=== PATIENT | female | born 1985 | race Caucasian/White ===

== ENCOUNTER 2023-05-10 09:52 | Emergency (ER) | payer SELFPAY ==
[2023-05-10 10:24] LABS: Absolute Lymphocytes (CBC) 1.3 K/uL (0.7-4.9); Hematocrit 38.3 % (36.0-45.0); Lymphocytes % 23.1 % (15.3-44.8); MCV 89.6 fL (80-100); MPV 7.8 fL (7.6-11.3); Platelets 193 thou/uL (152-406); RBC Red Blood Cell Count 4.28 M/uL (3.86-4.86)
[2023-05-10 10:41] LABS: Potassium 3.7 mEq/L (3.5-5.1)
[2023-05-10 10:55] LABS: Specific Gravity 1.011 (1.005-1.030); Urine Bacteria None Seen /HPF (<20); Urine Bilirubin NEGATIVE (Negative); Urine Blood 3+ (Negative); Urine Clarity Clear (Clear); Urine Color Colorless (Yellow); Urine Glucose NEGATIVE (Negative); Urine Mucus Slight /HPF (None Seen); Urine Protein NEGATIVE (Negative); Urine Urobilinogen Normal (Normal); Urine pH 7.5 (5.0-7.0)
[2023-05-10 10:57] LABS: Specific Gravity 1.011 (1.005-1.030)
--- NOTE | 2023-05-10 11:03 | RAD REPORT ---
EXAM DESCRIPTION: US - Transvaginal Study Probe - 05/10/2023 10:42 am CLINICAL HISTORY: Pelvic pain COMPARISON: none FINDINGS: The uterus measures 9 x 5 x 6 cm. A fibroid is not seen. The endometrial stripe measures 1 centimeter The ovaries are normal in size and echotexture. The right and left adnexa unremarkable No significant free fluid is seen. IMPRESSION: No significant abnormality is displayed
--- NOTE | 2023-05-10 11:15 | ER ---
Nurse's Notes [facility] [place] Name: Felisha Vasquez Age: 38 yrs Sex: Female : 1985 Arrival Date: 05/10/2023 Time: 09:52 Bed 18 Private MD: Diagnosis: Abnormal uterine and vaginal bleeding, unspecified Presentation: 05/10 10:07 Chief complaint: Patient states: Vaginal bleeding with large clots for 3 days. Lower ll1 back and lower abdominal pain. Coronavirus screen: Vaccine status: Patient reports being unvaccinated. Client denies travel out of the [place] in the last 14 days. At this time, the client does not indicate any symptoms associated with coronavirus-19. Ebola Screen: Patient denies travel to an Ebola-affected area in the 21 days before illness onset. Initial Sepsis Screen: Does the patient meet any 2 criteria? No. Patient's initial sepsis screen is negative. Does the patient have a suspected source of infection? Yes: Other: vaginal bleeding with clots. Risk Assessment: Do you want to hurt yourself or someone else? Patient reports no desire to harm self or others. Onset of symptoms was May 08, 2023. 10:07 Method Of Arrival: Ambulatory ll1 10:07 Acuity: YULISSA 3 ll1 Triage Assessment: 10:07 General: Appears in no apparent distress. Behavior is calm, cooperative, appropriate ll1 for age. Pain: Complains of pain in pelvis Pain currently is 10 out of 10 on a pain scale. : Reports cramping, vaginal bleeding that is with clots, moderate flow. Historical: - Allergies: 10:07 No Known Allergies; ll1 - PMHx: 10:07 None; ll1 - PSHx: 10:07 section; ll1 - Immunization history:: Adult Immunizations up to date. - Social history:: Smoking status: Patient reports the use of cigarette tobacco products, smokes one pack cigarettes per day. Screenin:21 [facility] ED Fall Risk Assessment (Adult) History of falling in the last 3 months, tm6 including since admission No falls in past 3 months (0 pts). Abuse screen: Denies threats or abuse. Denies injuries from another. Nutritional screening: No deficits noted. Tuberculosis screening: No symptoms or risk factors identified. Assessment: 10:21 General: Appears uncomfortable, Behavior is calm, cooperative. Pain: Complains of pain tm6 in pelvis Pain currently is 11 out of 10 on a pain scale. Quality of pain is described as sharp, Is continuous. Neuro: Level of Consciousness is awake, alert, obeys commands, Oriented to person, place, time, situation. Cardiovascular: Capillary refill < 3 seconds Patient's skin is warm and dry. Respiratory: Reports cough that is Airway is patent Respiratory effort is even, unlabored, Respiratory pattern is regular, symmetrical. GI: Bowel sounds present X 4 quads. Abd is soft Abd is non tender. : Reports pain in suprapubic area. EENT: No signs and/or symptoms were reported regarding the EENT system. Derm: No signs and/or symptoms reported regarding the dermatologic system. Musculoskeletal: No signs and/or symptoms reported regarding the musculoskeletal system. 11:19 Reassessment: Patient appears in no apparent distress at this time. Patient and/or tm6 family updated on plan of care and expected duration. Pain level reassessed. Vital Signs: 10:07 BP 134 / 86; Pulse 93; Resp 17; Temp 97.1; Pulse Ox 100% ; Weight 84.37 kg; Height 5 ll1 ft. 5 in. ; Pain 10/10; 10:21 BP 127 / 77; Pulse 95; Resp 19; Temp 97.5(TE); Pulse Ox 96% on R/A; Pain 10/10; tm6 10:07 Body Mass Index 30.95 (84.37 kg, 165.1 cm) ll1 10:07 Pain Scale: Adult ll1 10:21 Pain Scale: Adult tm6 ED Course: 09:57 Patient arrived in ED. im 09:58 Jacques Mansfield MD is Attending Physician. ec2 09:59 Savanah Joyce FNP-C [facility] kb 10:06 Arm band placed on Patient placed in an exam room, on a stretcher. ll1 10:09 Triage completed. ll1 10:10 Maik Murillo RN is Primary Nurse. tm6 10:21 Patient has correct armband on for positive identification. Bed in low position. Call tm6 light in reach. Side rails up X2. Provided Education on: on ultrasound need. Client placed on continuous cardiac and pulse oximetry monitoring. NIBP monitoring applied. Door closed. Noise minimized. 10:21 Basic Metabolic Panel Sent. tm6 10:21 CBC with Diff Sent. tm6 10:21 No provider procedures requiring assistance completed. Inserted saline lock: 20 gauge tm6 in right antecubital area, using aseptic technique. 10:44 US Transvaginal Study (Probe) In Process Unspecified. EDMS 10:47 Urinalysis w/ reflexes Sent. tm6 10:47 Test, Urine Sent. tm6 11:21 IV discontinued, intact, bleeding controlled, No redness/swelling at site. Pressure tm6 dressing applied. Administered Medications: No medications were administered Medication: 10:21 VIS not applicable for this client. tm6 Outcome: 11:14 Discharge ordered by . kb 11:21 Discharged to home ambulatory, tm6 11:21 Condition: stable 11:21 Discharge instructions given to patient, Instructed on discharge instructions, follow up and referral plans. Demonstrated understanding of instructions, follow-up care, 11:21 Patient left the ED. tm6 Signatures: Dispatcher [employer] Savanah Mata, UI LEAD DEVELOPER-C UI LEAD DEVELOPER-Getachew Joseph, RN RN ll1 Miesha Anderson Edwin, MD MD ec2 Maik Murillo RN RN tm6
--- NOTE | 2023-05-10 11:15 | EDPHYS ---
Physician Documentation [facility] Name: Felisha Vasquez Age: 38 yrs Sex: Female : 1985 Arrival Date: 05/10/2023 Time: 09:52 Bed 18 Private MD: ED Physician Jacques Mansfield HPI: 05/10 11:11 This 38 yrs old Female presents to ER via Ambulatory with complaints of General kb Weakness, Abdominal Pain, Leg Pain, Low Back Pain, Vaginal Bleeding - large clots. 11:11 The patient presents with vaginal bleeding that is moderate, with clots. Onset: The kb symptoms/episode began/occurred 3 day(s) ago. Modifying factors: The symptoms are alleviated by nothing, the symptoms are aggravated by nothing. Associated signs and symptoms: Pertinent positives: cramping, vaginal bleeding. Severity of symptoms: At their worst the symptoms were moderate, in the emergency department the symptoms are unchanged. The patient has not experienced similar symptoms in the past. The patient has not recently seen a physician. Patient is a 38-year-old female who presents for vaginal bleeding with large clots, lower abdomen/pelvic pain, weakness that started 3 days ago. States she had her last normal period 2 weeks ago.. Historical: - Allergies: 10:07 No Known Allergies; ll1 - PMHx: 10:07 None; ll1 - PSHx: 10:07 section; ll1 - Immunization history:: Adult Immunizations up to date. - Social history:: Smoking status: Patient reports the use of cigarette tobacco products, smokes one pack cigarettes per day. ROS: 11:10 Constitutional: Negative for fever, chills, and weight loss, kb 11:10 Abdomen/GI: Positive for abdominal pain, 11:10 : Positive for vaginal bleeding, 11:10 All other systems are negative, Exam: 11:10 Constitutional: This is a well developed, well nourished patient who is awake, alert, kb and in no acute distress. Head/Face: Normocephalic, atraumatic. ENT: Moist Mucous membranes Cardiovascular: Regular rate Respiratory: Respirations even and unlabored. No increased work of breathing. Talking in full sentences Abdomen/GI: Soft, non-tender. No distention Skin: Warm, dry with normal turgor. Normal color. MS/ Extremity: Pulses equal, no cyanosis. Neurovascular intact. Full, normal range of motion. Neuro: Awake and alert, GCS 15, oriented to person, place, time, and situation. Moves all extremities. Normal gait. Vital Signs: 10:07 BP 134 / 86; Pulse 93; Resp 17; Temp 97.1; Pulse Ox 100% ; Weight 84.37 kg; Height 5 ll1 ft. 5 in. ; Pain 10/10; 10:21 BP 127 / 77; Pulse 95; Resp 19; Temp 97.5(TE); Pulse Ox 96% on R/A; Pain 10/10; tm6 10:07 Body Mass Index 30.95 (84.37 kg, 165.1 cm) ll1 10:07 Pain Scale: Adult ll1 10:21 Pain Scale: Adult tm6 MDM: 09:58 Patient medically screened. ec2 11:10 Differential diagnosis: dysmenorrhea, nonspecific abdominal pain, ovarian cyst, uterine kb fibroids. Data reviewed: vital signs, nurses notes. Counseling: I had a detailed discussion with the patient and/or guardian regarding the historical points, exam findings, and any diagnostic results supporting the discharge/admit diagnosis, lab results, radiology results, the need for outpatient follow up, an OB/Gyne specialist, to return to the emergency department if symptoms worsen or persist or if there are any questions or concerns that arise at home. 05/10 10:06 Order name: CBC with Diff; Complete Time: 10:28 kb 05/10 10:06 Order name: Basic Metabolic Panel; Complete Time: 10:41 kb 05/10 10:06 Order name: Test, Urine; Complete Time: 10:59 kb 05/10 10:06 Order name: Urinalysis w/ reflexes; Complete Time: 10:56 kb 05/10 10:06 Order name: US Transvaginal Study (Probe); Complete Time: 11:06 kb 05/10 10:06 Order name: IV Start; Complete Time: 10:21 kb Administered Medications: No medications were administered Disposition Summary: 05/10/23 11:14 Discharge Ordered Notes: Location: Home kb Condition: Stable kb Diagnosis - Abnormal uterine and vaginal bleeding, unspecified kb Followup: kb - With: Emergency Department - When: As needed - Reason: Worsening of condition Followup: kb - With: Private Physician - When: 2 - 3 days - Reason: Recheck today's complaints, Continuance of care, Re-evaluation by your physician Discharge Instructions: - Discharge Summary Sheet kb - Abnormal Uterine Bleeding, [id number] kb Forms: - Medication Reconciliation Form kb - Thank You Letter kb - Antibiotic Education kb - Prescription Opioid Use kb - Patient Portal Instructions kb - Leadership Thank You Letter kb Addendum: 05/12/2023 07:36 I was immediately available for consultation during this patient's visit. I did not e c2 personally see the patient or guide the patient's care.. Signatures: Dispatcher [employer] EDSavanah Huynh, WILMA-C WILMA-Getachew Joseph RN RN ll1 Jacques Mansfield MD MD ec2
[2023-05-10 11:32] VITALS: BP 127/77; TEMP 97.5; O2SAT 96
== END 2023-05-10 11:21 | disposition home or self-care (01) ==
LOC: ER 09:52
DX: N93.9 Abnormal uterine and vaginal bleeding, unspecified (principal)
CPT/HCPCS: 36415; 76830; 80048; 81001; 81025; 85025; 99284